=== PATIENT | female | born 1955 | race Caucasian/White ===

== ENCOUNTER 2018-01-17 18:25 | Observation (INO) ==
[2018-01-17] MEDS ORDERED: Aspirin 81 MG TAB.CHEW PO ONE (18:42)
[2018-01-17] MEDS: Nitroglycerin 0.4 MG TAB.SUBL SL ONE ×2 (18:57→19:02)
--- NOTE | 2018-01-17 19:03 | Emergency Department Note ---
Disposition Clinical Impression: Chest pain Qualifiers: Chest pain type: unspecified Qualified Code(s): R07.9 - Chest pain, unspecified Disposition: Admitted As Inpatient Condition: Good Forms: ED Satisfaction Letter Chest Pain HPI - General Chief Complaint: ED Chest Pain Stated Complaint: CP Time Seen by Provider: 01/17/18 18:42 Source: patient Limitations: no limitations Vital Signs Reviewed: Yes Nursing Notes Reviewed: Yes - History of Present Illness HPI Narrative: Patient presents to the emergency department for evaluation of chest pain. Previous chest pain similar to prior MRIs that have required 6 stents in the past. Chest pain is in the center of her chest related as pressure with radiation to left arm and associated neck pain. Better with at home nitroglycerin but not completely relieved. Patient complaining of chest pain 6 out of 10 upon arrival. She did take aspirin and extra dose of Plavix prior to arrival. Her initial EKG does not show any significant ST elevations or depressions. She has previous EKG from 05/22 as well as 12/19. Patient will undergo further evaluation for possible cardiac etiology of chest pain Past medical history of coronary artery disease with 6 stents placed, hyperlipidemia, significant smoking history, COPD Severity scale (1-10): 5 - Related Data Home Medications Medication Instructions Recorded Confirmed ALPRAZolam [Xanax 0.5 MG Tablet] 0.5 mg PO BID PRN 05/25/15 05/25/15 Aspirin [Adult Low Dose Aspirin EC] 81 mg PO DAILY 05/25/15 05/25/15 Atorvastatin Calcium [Lipitor] 80 mg PO DAILY 05/25/15 05/25/15 Clopidogrel [Plavix] 75 mg PO DAILY 05/25/15 05/25/15 Lansoprazole [Prevacid] 30 mg PO TID 05/25/15 05/25/15 Metoprolol XL (24 HR) Succ [Toprol 50 mg PO DAILY 05/25/15 05/25/15 Xl] Oxycodone HCl/Acetaminophen 1 tab PO Q6H PRN 05/25/15 05/25/15 [Percocet 10-325 mg Tablet] Previous Rx's Medication Instructions Recorded Lisinopril [Zestril] 20 mg PO BID 30 Days tablet 05/28/15 Lisinopril [Zestril] 20 mg PO BID 30 Days tablet 05/28/15 Allergies Allergy/AdvReac Type Severity Reaction Status Date / Time bacitracin Allergy Rash Verified 01/17/18 18:29 [From Neosporin ([id number])] Neomycin Allergy Rash Verified 01/17/18 18:29 [From Neosporin ([id number])] polymyxin B Allergy Rash Verified 01/17/18 18:29 [From Neosporin ([id number])] Review of Systems: CONSTITUTIONAL: No weight loss, fever, chills, weakness or fatigue. HEENT: Eyes: No visual changes. Ears, Nose, Throat: No hearing loss, difficulty talking or unable to swallow. SKIN: No rash or itching. CARDIOVASCULAR: Chest pain RESPIRATORY: No shortness of breath, cough or sputum. GASTROINTESTINAL: No anorexia, nausea, vomiting or diarrhea. No abdominal pain or blood. GENITOURINARY: No burning on urination or hematuria. NEUROLOGICAL: No headache, dizziness, syncope, paralysis, ataxia, numbness or tingling in the extremities. No change in bowel or bladder control. MUSCULOSKELETAL: No muscle pain, back pain, joint pain or stiffness. Chest Pain PMH - Past Medical History Medical history: Reports: coronary artery disease, hyperlipidemia, hypertension, myocardial infarction Surgical history: Reports: cholecystectomy, hysterectomy, other, LE stent (s) Psychiatric history: Reports: no psych history - Social History Smoking Status: Current every day smoker Alcohol use: Reports: none Drug use: Reports: none Physical Exam General: Well appearing, nontoxic, no acute distress Head: Normocephalic Atraumatic Eyes: PERRL, EOMI ENT: Airway patent, no stridor Neck: supple, no meningismus Chest: Lungs clear to auscultation bilateral Cardiac: Regular rate and rhythm, no murmurs, rubs or gallops Abdomen: soft, nontender, nondistended; no guarding, rebound, or tenderness to percussion Musculoskeletal: Calves symmetric, nontender, no palpable cord Skin: No rash, normal skin tone Neuro: Alert and Oriented to person, place, and time; No focal deficit - General Limitations: no limitations General appearance: alert, in no apparent distress Course - Reevaluation(s) Reevaluation #1: Patient check aspirin as well as next dose of Plavix prior to arrival. Refusing aspirin in the emergency department. Patient was given nitroglycerin with complete resolution of pain. Patient will be admitted for further management. - Consultations Consultation #1: Discussed with hospitalist. Patient accepted for admission. Vital Signs Temperature 97.6 F 01/17/18 18:28 Pulse Rate 80 01/17/18 18:28 Respiratory Rate 16 01/17/18 18:28 Blood Pressure 139/77 01/17/18 18:28 O2 Sat by Pulse Oximetry 100 01/17/18 18:28 Temperature 97.6 F 01/17/18 18:46 Pulse Rate 82 01/17/18 19:30 Respiratory Rate 16 01/17/18 19:30 Blood Pressure 108/67 01/17/18 19:30 O2 Sat by Pulse Oximetry 97 01/17/18 19:30 Oxygen Delivery Oxygen Delivery Room Air Chest Pain - Lab Data Result diagrams: 01/17/18 18:54 01/17/18 18:54 Lab Results 01/17/18 01/17/18 01/17/18 Range/Units 18:54 18:54 18:54 WBC 9.2 (4.3-11.1) K/mcL RBC 4.41 (3.82-4.97) M/mcL Hgb 11.9 (11.5-15.4) g/dL Hct 36.0 (35.3-44.9) % MCV 81.6 L (83.0-100.0) fL MCH 27.0 L (28.0-33.3) pg MCHC 33.1 (31.6-35.5) g/dL RDW 15.5 H (11.5-14.5) % Plt Count 372 (140-400) K/mcL MPV 9.7 (9.4-12.4) fL Immature Gran % 0.8 (0-4) % Seg Neutrophils % 62.0 % Lymphocytes % 28.0 % Monocytes % 7.9 % Eosinophils % 1.1 % Basophils % 0.2 % Neutrophils # 5.7 (1.6-8.9) K/mcL Lymphocytes # 2.6 (0.6-4.6) K/mcL Monocytes # 0.7 (0.0-1.3) K/mcL Eosinophils # 0.1 (0.0-0.6) K/mcL Basophils # 0.0 (0.0-0.2) K/mcL PT 10.9 (9.4-12.1) Seconds INR 1.0 APTT 32.3 (26.0-36.0) Seconds Sodium 138 (136-145) mEq/L Potassium 3.7 (3.5-5.1) mEq/L Chloride 108 H (98-107) mEq/L Carbon Dioxide 23 (23-29) mEq/L BUN 10 (8-23) mg/dL Creatinine 0.90 (0.60-1.20) mg/dL Est GFR ( Amer) > 60 (> 60) Est GFR (Non-Af Amer) > 60 (> 60) BUN/Creatinine Ratio 11 (6-26) Glucose 66 L (70-105) mg/dL Calculated Osmolality 283 (280-300) Calcium 8.9 (8.6-10.3) mg/dL Troponin I < 0.03 (< 0.04) ng/mL
[2018-01-17 19:07] LABS: Basophils % 0.2 %; Eosinophils # 0.1 K/mcL (0.0-0.6); Eosinophils % 1.1 %; Hemoglobin 11.9 g/dL (11.5-15.4); Immature Granulocytes % 0.8 % (0-4); Lymphocytes # 2.6 K/mcL (0.6-4.6); Mean Corpuscular HGB Conc 33.1 g/dL (31.6-35.5); Mean Corpuscular Volume 81.6 fL (83.0-100.0); Mean Platelet Volume 9.7 fL (9.4-12.4); Monocytes # 0.7 K/mcL (0.0-1.3); Monocytes % 7.9 %; Neutrophils # 5.7 K/mcL (1.6-8.9); Platelet Count 372 K/mcL (140-400); Red Blood Count 4.41 M/mcL (3.82-4.97); Red Cell Distribution Width 15.5 % (11.5-14.5)
[2018-01-17 19:14] LABS: Prothrombin Time 10.9 Seconds (9.4-12.1)
[2018-01-17 19:16] LABS: Activated Partial Thrombo Time 32.3 Seconds (26.0-36.0)
[2018-01-17 19:31] LABS: BUN/Creatinine Ratio 11 (6-26); Blood Urea Nitrogen 10 mg/dL (8-23); Calcium 8.9 mg/dL (8.6-10.3); Carbon Dioxide 23 mEq/L (23-29); Chloride 108 mEq/L (98-107); Glucose 66 mg/dL (70-105); Osmolality,Calculated 283 (280-300); Potassium 3.7 mEq/L (3.5-5.1); Sodium 138 mEq/L (136-145); Troponin I < 0.03 ng/mL (< 0.04); eGFR For Non-African Americans > 60 (> 60)
[2018-01-17] MEDS ORDERED: Naloxone 0.4 MG/ML INJ IVP PRN (23:00)
[2018-01-17] MEDS ORDERED: *HR* OxyCODONE/APAP 10/325 TABLET PO PRN (23:04)
[2018-01-17] MEDS ORDERED: ALPRAZolam 0.5 MG TABLET PO PRN (23:04)
[2018-01-17] MEDS ORDERED: diazePAM 5 MG TABLET PO PRN (23:04)
[2018-01-17] MEDS ORDERED: Nitroglycerin 0.4 MG TAB.SUBL SL PRN (23:04)
[2018-01-17] MEDS ORDERED: Acetaminophen 325 MG TABLET PO PRN (23:06)
[2018-01-17] MEDS: *HR* Heparin 5,000 UNIT/ML VIAL SQ SCH (23:52)
[2018-01-18 01:17] LABS: Basophils % 0.3 %; Eosinophils # 0.2 K/mcL (0.0-0.6); Eosinophils % 1.6 %; Hematocrit 33.3 % (35.3-44.9); Hemoglobin 10.9 g/dL (11.5-15.4); Immature Granulocytes % 0.5 % (0-4); Lymphocytes # 3.2 K/mcL (0.6-4.6); Mean Corpuscular HGB Conc 32.7 g/dL (31.6-35.5); Mean Corpuscular Hemoglobin 26.3 pg (28.0-33.3); Mean Corpuscular Volume 80.2 fL (83.0-100.0); Mean Platelet Volume 9.9 fL (9.4-12.4); Monocytes # 0.8 K/mcL (0.0-1.3); Neutrophils # 4.9 K/mcL (1.6-8.9); Platelet Count 350 K/mcL (140-400); Red Blood Count 4.15 M/mcL (3.82-4.97); Red Cell Distribution Width 15.5 % (11.5-14.5); Segmented Neutrophils % 53.6 %
[2018-01-18 01:36] LABS: Alanine Aminotransferase 15 Units/L (7-52); Albumin 3.7 g/dL (3.5-5.7); Albumin/Globulin Ratio 1.6 (1.1-2.2); Alkaline Phosphatase 77 Units/L (34-104); Aspartate Amino Transferase 16 Units/L (13-39); BUN/Creatinine Ratio 13 (6-26); Bilirubin,Total 0.2 mg/dL (0.3-1.0); Blood Urea Nitrogen 11 mg/dL (8-23); Calcium 8.9 mg/dL (8.6-10.3); Carbon Dioxide 24 mEq/L (23-29); Chloride 109 mEq/L (98-107); Globulin 2.3 g/dL (2.4-3.5); Glucose 110 mg/dL (70-105); Osmolality,Calculated 286 (280-300); Potassium 4.1 mEq/L (3.5-5.1); Sodium 138 mEq/L (136-145); eGFR For Non-African Americans > 60 (> 60)
[2018-01-18] MEDS ORDERED: Menthol 9.1 MG LOZENGE PO PRN (02:10)
--- NOTE | 2018-01-18 02:14 | Internal Med History&Physical ---
Date of Encounter: 01/18/18 Time of Encounter: 01:00 Internal Medicine - H&P: HPI Chief complaint: Chest pain History of present illness: Ms. Edward is a 62 year old female with a past medical history of coronary artery disease status post multiple cardiac stents, hypertension, CT 3 who presents with chest pain. Patient states that earlier today while she was driving she noted left arm numbness associated with left-sided chest pain described as sharp and radiating to her neck. Chest pain aggravated by deep inspiration and palpation to the area of the left chest wall. She became concerned because it was a similar presentation to previous cardiac events. Patient reports she had a recent upper respiratory tract infection which she is recovering from. She did take nitroglycerin at home which helped but did not completely relieve her symptoms. Additionally she took an extra dose of her Plavix prior to arrival. Initial EKG was unremarkable and did not show any ST or T-wave changes. Negative troponins. Currently chest pain-free. Past Med Surg Social Fam HX - Past Medical History Medical history: coronary artery disease, hyperlipidemia, hypertension, myocardial infarction Additional medical history: lumbar stenosis, anemia Psychiatric history: no psych history - Past Surgical History Surgical History: cholecystectomy, hysterectomy, other, LE stent (s) Additional surgical history: colonoscopy, bladder sling removed, hiatal hernia repair, stents x6 - Social History Smoking Status: Current every day smoker Smokeless Tobacco Status: No Alcohol use: none Drug use: none - Family History Father Living Status: Hx Family Cardiac Disorders: Yes Internal Medicine - H&P: Meds ALPRAZolam [Xanax 0.5 MG Tablet] 0.5 mg PO BID PRN 05/25/15 [History] Aspirin [Adult Low Dose Aspirin EC] 81 mg PO DAILY 05/25/15 [History] Atorvastatin Calcium [Lipitor] 80 mg PO DAILY 05/25/15 [History] Clopidogrel [Plavix] 75 mg PO DAILY 05/25/15 [History] Lansoprazole [Prevacid] 30 mg PO TID 05/25/15 [History] Metoprolol XL (24 HR) Succ [Toprol Xl] 50 mg PO DAILY 05/25/15 [History] Oxycodone HCl/Acetaminophen [Percocet 10-325 mg Tablet] 1 tab PO Q6H PRN 05/25/15 [History] Diazepam 5 mg PO BID PRN 01/17/18 [History] Lisinopril [Zestril] 10 mg PO BID 01/17/18 [History] Allergy/AdvReac Type Severity Reaction Status Date / Time bacitracin Allergy Rash Verified 01/17/18 18:29 [From Neosporin ([id number])] Neomycin Allergy Rash Verified 01/17/18 18:29 [From Neosporin ([id number])] polymyxin B Allergy Rash Verified 01/17/18 18:29 [From Neosporin ([id number])] All Systems PM: A 10-system review of systems was performed and is negative for pertinent findings except as documented above in the HPI. - Constitutional Constitutional: no chills, no fever(s), no night sweats - EENT Eyes: no change in vision, no discharge, no pain, no photophobia Ears: no ear discharge, no ear pain, no tinnitus Nose, mouth and throat: no dysphagia, no nasal discharge, no neck pain, no sore throat - Cardiovascular Cardiovascular ROS IM: no chest pain, no diaphoresis, no dyspnea, no lightheadedness, no palpitations, no syncope - Respiratory Respiratory: no cough, no dyspnea, no wheezing, no excessive phlegm production - Gastrointestinal Gastrointestinal: no abdominal pain, no diarrhea, no hematemesis, no hematochezia, no melena, no nausea, no vomiting - Genitourinary Genitourinary: no change in urinary stream, no dysuria, no flank pain, no hematuria - Musculoskeletal Musculoskeletal ROS IM: no numbness, no tingling - Integumentary Integumentary IM: no rash, no unusual bruising - Neurological Neurological ROS: no confusion, no convulsions, no focal weakness, no numbness, no tingling, no tremor(s) - Hematologic/Lymphatic Hematologic/Lymphatic: no easy bruising - Constitutional Vitals: Temp Pulse Resp BP Pulse Ox 98.2 F 62 15 128/82 99 01/17/18 22:07 01/17/18 22:07 01/17/18 22:07 01/17/18 22:07 01/17/18 22:07 Exam: General: Alert and oriented Skin:Normal color, no rash, no lesions. HEENT:EOM, pupils equal, round and reactive. Cardiovascular:Normal S1 & S2, tenderness to palpation over the area of the left chest wall; no rubs, murmurs or gallops. No JVD. Pulse regular. Lungs:Normal breath sounds, no wheezes or crackles. Abdomen:Soft, non-tender, no rigidity. Extremities:No deformity, no edema or tenderness, no joint swelling or clubbing. Neurological:Normal cognition and motor skills. Pulses:Carotid and radial pulses normal +2. Rest of the physical exam is non contributory Internal Med - H&P Results - Labs CBC & Chem 7: 01/18/18 00:54 01/18/18 00:54 Labs: Short CBC 01/17/18 01/18/18 Range/Units 18:54 00:54 WBC 9.2 9.1 (4.3-11.1) K/mcL Hgb 11.9 10.9 L (11.5-15.4) g/dL Hct 36.0 33.3 L (35.3-44.9) % Plt Count 372 350 (140-400) K/mcL Neutrophils # 5.7 4.9 (1.6-8.9) K/mcL BMP 01/17/18 01/18/18 18:54 00:54 Sodium 138 138 Potassium 3.7 4.1 Chloride 108 H 109 H Carbon Dioxide 23 24 BUN 10 11 Creatinine 0.90 0.85 Glucose 66 L 110 H Calcium 8.9 8.9 Cardiac Enzymes 01/17/18 01/18/18 Range/Units 18:54 00:54 Troponin I < 0.03 < 0.03 (< 0.04) ng/mL Liver Function 01/18/18 Range/Units 00:54 Total Bilirubin 0.2 L (0.3-1.0) mg/dL AST 16 (13-39) Units/L ALT 15 (7-52) Units/L Alkaline Phosphatase 77 (34-104) Units/L Albumin 3.7 (3.5-5.7) g/dL - Impressions ITS Impressions Chest X-Ray 01/17/18 18:42 IMPRESSION: Increased lung markings at the bilateral parahilar regions, may be related to mild bronchitis. D/ / Kit Broderick MD / Kit Broderick MD Interpreting Provider: Kit Broderick MD - Assessment and plan (1) Chest pain Current Visit: Yes Status: Acute Assessment and plan: Atypical chest pain described as left-sided, sharp, aggravated with deep inspiration and reproducible to palpation over the area in question. Initial EKG was unchanged from previous do not show any T-wave inversions or ST to carol nges. Initial troponins were negative. Low suspicion for ACS. Patient had a nuclear stress test in May which was negative for ischemia or infarct. Patient did receive loading dose of aspirin in the ED. Suspect possible costochondritis versus pleurisy in the setting of a recent upper respiratory tract infection. Chest x-ray also shows changes consistent with a mild bronchitis. Continue telemetry Sublingual nitroglycerin as needed Trend troponins We will recommend discharging home if troponins remain negative. Qualifiers: Chest pain type: unspecified Qualified Code(s): R07.9 - Chest pain, unspecified (2) CAD (coronary artery disease) Current Visit: No Status: Chronic Assessment and plan: Coronary artery disease status post multiple stents. Low suspicion for ACS at this time. See above. We will continue home medications for medical management of her coronary artery disease. Qualifiers: Coronary Disease-Associated Artery/Lesion type: [place] artery [place] vs. transplanted heart: [place] heart Associated angina: angina presence unspecified Qualified Code(s): I25.10 - Atherosclerotic heart disease of [place] coronary artery without angina pectoris (3) COPD suggested by initial evaluation Current Visit: No Status: Chronic Assessment and plan: Stable. No evidence of an acute exacerbation. We will monitor. (4) Hypertension Current Visit: Yes Status: Acute Assessment and plan: Blood pressure stable. Continue home antihypertensives. Monitor. Qualifiers: Hypertension type: essential hypertension Qualified Code(s): I10 - Essential (primary) hypertension (5) DVT prophylaxis Current Visit: No Status: Acute Assessment and plan: Subcutaneous heparin - Time Spent With Patient Total time spent is greater than 50% in coordination of care (as documented) at patient's floor/unit and/or counseling patient:
[2018-01-18] MEDS: *HR* Heparin 5,000 UNIT/ML VIAL SQ SCH (06:33)
[2018-01-18 07:00] VITALS: BP 143/80
[2018-01-18] MEDS ORDERED: Metoprolol XL (24 HR) Succ 50 MG TAB.ER.24H PO SCH (09:00)
[2018-01-18] MEDS ORDERED: Lisinopril 20 MG TABLET PO SCH (09:00)
[2018-01-18] MEDS ORDERED: Aspirin Enteric Coated 81 MG Tablet PO SCH (09:00)
[2018-01-18] MEDS ORDERED: Levofloxacin 750 MG/150 ML 750 MG/150 ML BAG IVPB SCH (09:15)
[2018-01-18] MEDS ORDERED: Nicotine 14 MG PATCH.TD24 TD SCH (09:15)
--- NOTE | 2018-01-18 09:19 | Discharge Summary ---
- NOTES TO OUTPATIENT PROVIDER Notes to Outpatient Provider: Follow up with PCP in one week. please quit smoking Orders not resulted at time of discharge: Pending orders 01/17/18 18:42 ECG 12 lead ECG [ECG] Stat Date of Encounter: 01/18/18 Time of Encounter: 09:14 - Discharge Diagnosis (1) Acute bronchitis Priority: Primary Status: Acute Qualifiers: Bronchitis organism: unspecified organism Qualified Code(s): J20.9 - Acute bronchitis, unspecified (2) Chest pain Priority: Primary Status: Acute Qualifiers: Chest pain type: unspecified Qualified Code(s): R07.9 - Chest pain, unspecified (3) CAD (coronary artery disease) Priority: Secondary Status: Chronic Qualifiers: Coronary Disease-Associated Artery/Lesion type: [place] artery [place] vs. transplanted heart: [place] heart Associated angina: angina presence unspecified Qualified Code(s): I25.10 - Atherosclerotic heart disease of [place] coronary artery without angina pectoris (4) COPD suggested by initial evaluation Priority: Secondary Status: Chronic (5) DVT prophylaxis Priority: Secondary Status: Acute (6) Hypertension Priority: Secondary Status: Acute Qualifiers: Hypertension type: essential hypertension Qualified Code(s): I10 - Essential (primary) hypertension Hospital course: Ms. Edward is a 62 year old female with a past medical history of coronary artery disease status post multiple cardiac stents, hypertension, [place] 3 who had a normal nuclear stress test on , chronic tobacco dependence patient who presented to ER with cough with expectoration and chest pain. Chest pain aggravated by deep inspiration and palpation to the area of the left chest wall. She did take nitroglycerin at home which helped but did not completely relieve her symptoms. Additionally she took an extra dose of her Plavix prior to arrival. Initial EKG was unremarkable and did not show any ST or T-wave changes. She was admitted in the hospital and placed on panel monitor. Checked her serial troponin x 3, were negative. Her chest x-ray showed mild bronchitis. At this point I placed her on empirical antibiotic levofloxacin due to her purulent bronchitis suspicious for bacterial infection. Patient is still smoking half a pack a day, Counseled to quit smoking and also gave her prescription for nicotine patches. Since she had a normal stress test in May 2017, now with negative troponin times 3 and atypical presentation for chest pain [place] patient does not need any further cardiac workup at this point. So will discharge her home in a stable condition today - Time Spent with Patient Total time spent providing and/or coordinating discharge services: - Discharge Medications Prescriptions: Albuterol Sulfate [Albuterol Inhaler] 2 puff IH Q6HR PRN #1 hfa.[email or web address] PRN Reason: Shortness Of Breath Levofloxacin [Levaquin] 500 mg PO DAILY #4 tablet Nicotine Patch [Nicoderm] 14 mg TD DAILY #20 patch.td24 Home Medications: ALPRAZolam [Xanax 0.5 MG Tablet] 0.5 mg PO BID PRN 05/25/15 [History] Aspirin [Adult Low Dose Aspirin EC] 81 mg PO DAILY 05/25/15 [History] Atorvastatin Calcium [Lipitor] 80 mg PO DAILY 05/25/15 [History] Clopidogrel [Plavix] 75 mg PO DAILY 05/25/15 [History] Lansoprazole [Prevacid] 30 mg PO TID 05/25/15 [History] Metoprolol XL (24 HR) Succ [Toprol Xl] 50 mg PO DAILY 05/25/15 [History] Oxycodone HCl/Acetaminophen [Percocet 10-325 mg Tablet] 1 tab PO Q6H PRN 05/25/15 [History] Diazepam 5 mg PO BID PRN 01/17/18 [History] Lisinopril [Zestril] 10 mg PO BID 01/17/18 [History] Albuterol Sulfate [Albuterol Inhaler] 2 puff IH Q6HR PRN #1 hfa.aer.ad 01/18/18 [Rx] Levofloxacin [Levaquin] 500 mg PO DAILY #4 tablet 01/18/18 [Rx] Nicotine Patch [Nicoderm] 14 mg TD DAILY #20 patch.td24 01/18/18 [Rx] Allergies/Adverse Reactions: Allergy/AdvReac Type Severity Reaction Status Date / Time bacitracin Allergy Rash Verified 01/17/18 18:29 [From Neosporin ([id number])] Neomycin Allergy Rash Verified 01/17/18 18:29 [From Neosporin ([id number])] polymyxin B Allergy Rash Verified 01/17/18 18:29 [From Neosporin ([id number])] Date of admission: 01/17/18 20:56 Primary care physician: Delicia Baca CNP - Constitutional Vitals: Temp Pulse Resp BP Pulse Ox 97.8 F 62 16 143/80 97 01/18/18 07:00 01/18/18 07:00 01/18/18 07:00 01/18/18 07:00 01/18/18 07:00 General appearance: Present: A&O X 3 Exam: Gen: Alert, awake, Oriented to time,place and person Chest: Diminished breath sounds B/L, No wheezing, No crackles, No rales, reproducible chest wall tenderness Heart: S1S2+ RRR No murmurs Abd: Soft, NT, BS +, No organomegaly Ext: No edema, pulses are palpable, No calf tenderness Neuro : Benign findings Skin: No rash. - Patient Status Disposition: Home, Self-Care Condition: Good Overall status at discharge: patient is back to baseline - Discharge Instructions Follow Up With: Delicia Baca CNP [Primary Care Provider] - - Diet and Activity Activity: increase activity as tolerated Diet: low salt diet
[2018-01-18] MEDS ORDERED: levoFLOXacin 500 MG TABLET PO ONE (09:55)
--- NOTE | 2018-01-19 20:01 | Electrocardiograph Report ---
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
== END 2018-01-18 11:09 | disposition home or self-care (01) ==
LOC: 3BNU 18:25 → EMEROOARM 18:25 → 3BNU 21:43
PROVIDERS: ADMIT Internal Medicine; ATTEND Internal Medicine

== ENCOUNTER 2020-07-29 18:43 | Inpatient (IN) ==
[~2020-07-29 18:43] MED LIST: *HR* Atropine Sulfate 1 MG/10 ML SYRINGE IV ONE; *HR* Dextrose 50 % in Water (Syg) 50 ML SYRINGE IVP ONE; *HR* EPINEPHrine 1 MG/10 ML SYRINGE IVP ONE; EPINEPHrine 1 MG/ML VIAL IV ONE; Norepinephrine 4 MG/254 ML 0.9% NaCL IVC ONE
[2020-07-29] MEDS ORDERED: Insulin Regular, Human 100 UNIT/ML ONE ×2 (18:57→19:28)
[2020-07-29 19:11] LABS: ABG Base Excess -17 mEq/L (-2 to 3); ABG HCO3 16 mEq/L (21-27); ABG Oxygen Saturation 99 % (95-98); ABG PCO2 91 mmHg (35-45); ABG PH 6.86 pH Units (7.32-7.45); ABG PO2 253 mmHg (85-104); ABG TCO2 19 mEq/L (20-26); Blood Gas VT 400 cc
[2020-07-29] MEDS ORDERED: 0.9 % Sodium Chloride 250 ML ONE (19:21)
[2020-07-29] MEDS: Norepinephrine 4 MG/254 ML IV.SOLN IVC SCH (19:27)
[2020-07-29] MEDS ORDERED: Isovue-370 500 ML BOTTLE IVP ONE (19:29)
[2020-07-29] MEDS ORDERED: 0.9 % Sodium Chloride 1,000 ML IVC ONE (19:30)
[2020-07-29] MEDS ORDERED: Piperacillin/Tazobactam 3.375 GM in Water for inj. (sterile) 20 ML IVP ONE (19:30)
[2020-07-29] MEDS ORDERED: Insulin Regular, Human 100 UNIT/ML IV ONE (19:30)
[2020-07-29] MEDS ORDERED: *HR* Midazolam HCl 50 MG/10 ML VIAL IVC ONE (19:43)
[2020-07-29] MEDS ORDERED: *HR* FentaNYL (PF) 1,000 MCG/20 ML VIAL ONE (19:44)
[2020-07-29] MEDS ORDERED: EPINEPHrine 1 MG in D5% in Water 250 ML IVC SCH (19:45)
[2020-07-29 19:46] LABS: INR 1.1; Prothrombin Time 13.1 Seconds (9.4-12.1)
[2020-07-29 19:48] LABS: Activated Partial Thrombo Time 28.9 Seconds (26.0-36.0)
[2020-07-29] MEDS: Midazolam HCl 50 MG/100 ML IV.SOLN IVC SCH (19:52)
[2020-07-29] MEDS: FentaNYL (PF) 1,000 MCG/100 ML IV.SOLN IVC SCH (19:54)
[2020-07-29 20:19] LABS: Hematocrit 31.7 % (35.3-44.9); Hemoglobin 10.7 g/dL (11.5-15.4); Mean Corpuscular HGB Conc 33.8 g/dL (31.6-35.5); Mean Corpuscular Hemoglobin 27.2 pg (28.0-33.3); Mean Corpuscular Volume 80.7 fL (83.0-100.0); Mean Platelet Volume 9.8 fL (9.4-12.4); Monocytes # 0.3 K/mcL (0.0-1.3); Nucleated Red Blood Cells 0.2 /100 WBC (0); Platelet Count 291 K/mcL (140-400); Red Blood Count 3.93 M/mcL (3.82-4.97); Red Cell Distribution Width 14.9 % (11.5-14.5); White Blood Count 16.6 K/mcL (4.3-11.1)
[2020-07-29] MEDS ORDERED: levETIRAcetam 1,000 MG in 0.9 % Sodium Chloride 100 ML IVPB ONE (20:25)
[2020-07-29 20:26] LABS: Amphetamine Screen,Urine Negative ng/mL (Cutoff=1000); Barbiturate Screen,Urine Negative ng/mL (Cutoff=200); Benzodiazepines Screen,Urine Negative ng/mL (Cutoff=200); Cannabinoid Screen,Urine Negative ng/mL (Cutoff = 50); Cocaine Screen,Urine Negative ng/mL (Cutoff= 300); Opiate Screen,Urine Positive ng/mL (Cutoff=300); Phencyclidine Screen,Urine Negative ng/mL (Cutoff=25)
[2020-07-29 20:35] LABS: Acetaminophen < 10 mcg/mL (10-20); BUN/Creatinine Ratio 13 (6-26); Blood Urea Nitrogen 16 mg/dL (8-23); Calcium 9.6 mg/dL (8.6-10.3); Carbon Dioxide 17 mEq/L (23-29); Chloride 99 mEq/L (98-107); Glucose 234 mg/dL (70-105); Osmolality,Calculated 291 (280-300); Potassium 4.4 mEq/L (3.5-5.1); Salicylate < 2.5 mg/dL (15.0-30.0); Sodium 136 mEq/L (136-145); eGFR For African Americans 51 (> 60); eGFR For Non-African Americans 42 (> 60)
[2020-07-29 20:39] LABS: Troponin I 0.04 ng/mL (< 0.04)
[2020-07-29 20:48] LABS: Eosinophils # 0.3 K/mcL (0.0-0.6); Large Platelets Present (Not Present); Lymphocytes # 2.3 K/mcL (0.6-4.6); Neutrophils # 13.3 K/mcL (1.6-8.9); Platelet Estimate Normal (Normal); Reactive Lymphocytes Present (Not Present)
[2020-07-29 20:58] LABS: ABG Base Excess -3 mEq/L (-2 to 3); ABG HCO3 23 mEq/L (21-27); ABG Oxygen Saturation 97 % (95-98); ABG PCO2 48 mmHg (35-45); ABG PO2 99 mmHg (85-104); ABG TCO2 25 mEq/L (20-26); Blood Gas Modality ASSIST CONTROL; Blood Gas VT 400 cc
[2020-07-29] MEDS ORDERED: Naloxone 0.4 MG/ML INJ IVP PRN (22:48)
[2020-07-30] MEDS ORDERED: 0.9 % Sodium Chloride 1,000 ML IVC SCH (00:15)
[2020-07-30] MEDS: Piperacillin/Tazobactam 3.375 GM in 0.9 % Sodium Chloride Mini Bag 100 ML IVPB SCH ×4 (00:19→23:06)
[2020-07-30] MEDS: *HR* Heparin 5,000 UNIT/ML VIAL SQ SCH ×4 (00:19→23:06)
[2020-07-30 00:46] LABS: Basophils # 0.1 K/mcL (0.0-0.2); Basophils % 0.5 %; Eosinophils % 0.1 %; Hematocrit 36.6 % (35.3-44.9); Hemoglobin 12.2 g/dL (11.5-15.4); Immature Granulocytes % 3.9 % (0-4); Lymphocytes # 1.2 K/mcL (0.6-4.6); Lymphocytes % 5.7 %; Mean Corpuscular HGB Conc 33.3 g/dL (31.6-35.5); Mean Corpuscular Hemoglobin 26.3 pg (28.0-33.3); Mean Platelet Volume 9.8 fL (9.4-12.4); Monocytes # 1.1 K/mcL (0.0-1.3); Monocytes % 5.3 %; Nucleated Red Blood Cells 0.1 /100 WBC (0); Platelet Count 352 K/mcL (140-400); Red Blood Count 4.63 M/mcL (3.82-4.97); Red Cell Distribution Width 14.9 % (11.5-14.5); Segmented Neutrophils % 84.5 %
[2020-07-30 00:47] LABS: Neutrophils # 17.8 K/mcL (1.6-8.9); White Blood Count 21.1 K/mcL (4.3-11.1)
[2020-07-30 00:50] LABS: BUN/Creatinine Ratio 19 (6-26); Blood Urea Nitrogen 18 mg/dL (8-23); Calcium 9.8 mg/dL (8.6-10.3); Carbon Dioxide 24 mEq/L (23-29); Chloride 101 mEq/L (98-107); Glucose 180 mg/dL (70-105); Osmolality,Calculated 290 (280-300); Potassium 3.7 mEq/L (3.5-5.1); Sodium 137 mEq/L (136-145); eGFR For African Americans > 60 (> 60); eGFR For Non-African Americans 58 (> 60)
[2020-07-30] MEDS ORDERED: hydrALAZINE 10 MG TABLET PO PRN (01:03)
[2020-07-30] MEDS: *HR* Meperidine 25 MG/ML SYRINGE IVP PRN ×2 (01:35→09:13)
[2020-07-30 01:37] LABS: Magnesium 1.7 mg/dL (1.6-2.6)
[2020-07-30 04:40] LABS: ABG Base Excess -1 mEq/L (-2 to 3); ABG HCO3 23 mEq/L (21-27); ABG Oxygen Saturation 98 % (95-98); ABG PCO2 36 mmHg (35-45); ABG PH 7.41 pH Units (7.32-7.45); ABG PO2 96 mmHg (85-104); ABG TCO2 24 mEq/L (20-26); Blood Gas VT 480 cc
[2020-07-30] MEDS: MethylPREDNISolone 40 MG/ML VIAL IVP SCH ×2 (07:51→17:27)
[2020-07-30 08:42] LABS: Adenovirus Not Detected (Not Detect); Coronavirus 229E Not Detected (Not Detect); Coronavirus HKU1 Not Detected (Not Detect); Coronavirus NL63 Not Detected (Not Detect); Coronavirus OC43 Not Detected (Not Detect)
[2020-07-30 08:43] LABS: Bordetella Pertussis Not Detected (Not Detect); Chlamydophila pneumoniae Not Detected (Not Detect); Human Metapneumovirus Not Detected (Not Detect); Human Rhinovirus/Enterovirus Not Detected (Not Detect); Influenza A Subtype 2009 H1 Not Detected (Not Detect); Influenza B Not Detected (Not Detect); Mycoplasma pneumoniae Not Detected (Not Detect); Parainfluenza Virus 1 Not Detected (Not Detect); Parainfluenza Virus 2 Not Detected (Not Detect); Parainfluenza Virus 3 Not Detected (Not Detect); Parainfluenza Virus 4 Not Detected (Not Detect); Respiratory Syncytial Virus Not Detected (Not Detect); SARS-CoV-2 Not Detected (Not Detect)
[2020-07-30] MEDS ORDERED: Perflutren Lipid Microsphere 1.3 ML in 0.9 % Sodium Chloride 8.7 ML IVP PRN (09:48)
[2020-07-30] MEDS ORDERED: Artificial Tears SOLN 15 ML BOTTLE BOTH EYES PRN (10:02)
[2020-07-30] MEDS: FentaNYL (PF) 1,000 MCG/100 ML IV.SOLN IVC SCH ×3 (10:43→23:27)
[2020-07-30] MEDS: Chlorhexidine Rinse 15 ML MOUTHWASH MM SCH ×2 (10:50→19:57)
[2020-07-30] MEDS: Dexmedetomidine HCl 400 MCG/100 ML MLS IVC SCH (11:00)
[2020-07-30] MEDS: Artificial Tears SOLN 15 ML BOTTLE BOTH EYES SCH ×4 (11:42→23:07)
[2020-07-30] MEDS ORDERED: Vancomycin 1,250 MG/262.5 ML IV.SOLN IVPB SCH (12:00)
[2020-07-30] MEDS ORDERED: Ipratropium/Albuterol Neb 3 ML IH PRN (13:43)
[2020-07-30] MEDS: Doxycycline 100 MG in 0.9 % Sodium Chloride Mini Bag 100 ML IVPB SCH (17:27)
[2020-07-30] MEDS: Norepinephrine 4 MG/254 ML IV.SOLN IVC SCH (19:44)
[2020-07-30] MEDS: Midazolam HCl 50 MG/100 ML IV.SOLN IVC SCH (19:56)
[2020-07-31] MEDS: Dexmedetomidine HCl 400 MCG/100 ML MLS IVC SCH ×3 (01:49→20:45)
[2020-07-31] MEDS: Artificial Tears SOLN 15 ML BOTTLE BOTH EYES SCH ×5 (04:10→20:01)
[2020-07-31 04:22] LABS: ABG Base Excess 0 mEq/L (-2 to 3); ABG HCO3 25 mEq/L (21-27); ABG Oxygen Saturation 96 % (95-98); ABG PCO2 39 mmHg (35-45); ABG PH 7.41 pH Units (7.32-7.45); ABG PO2 79 mmHg (85-104); ABG TCO2 26 mEq/L (20-26); Blood Gas VT 400 cc
[2020-07-31 04:23] LABS: Basophils % 0.1 %; Hematocrit 28.1 % (35.3-44.9); Hemoglobin 9.5 g/dL (11.5-15.4); Immature Granulocytes % 3.7 % (0-4); Lymphocytes # 1.2 K/mcL (0.6-4.6); Lymphocytes % 5.6 %; Mean Corpuscular HGB Conc 33.8 g/dL (31.6-35.5); Mean Corpuscular Hemoglobin 26.3 pg (28.0-33.3); Mean Corpuscular Volume 77.8 fL (83.0-100.0); Mean Platelet Volume 10.2 fL (9.4-12.4); Monocytes # 0.7 K/mcL (0.0-1.3); Monocytes % 3.4 %; Neutrophils # 18.7 K/mcL (1.6-8.9); Nucleated Red Blood Cells 0.1 /100 WBC (0); Platelet Count 288 K/mcL (140-400); Red Blood Count 3.61 M/mcL (3.82-4.97); Red Cell Distribution Width 15.1 % (11.5-14.5); Segmented Neutrophils % 87.2 %; White Blood Count 21.5 K/mcL (4.3-11.1)
[2020-07-31 04:41] LABS: Magnesium 1.4 mg/dL (1.6-2.6); Phosphorous 3.1 mg/dL (2.7-4.5)
[2020-07-31] MEDS: Doxycycline 100 MG in 0.9 % Sodium Chloride Mini Bag 100 ML IVPB SCH ×2 (06:12→17:37)
[2020-07-31] MEDS: MethylPREDNISolone 40 MG/ML VIAL IVP SCH ×2 (06:12→17:35)
[2020-07-31] MEDS: FentaNYL (PF) 1,000 MCG/100 ML IV.SOLN IVC SCH ×3 (06:17→19:52)
[2020-07-31 06:55] LABS: BUN/Creatinine Ratio 25 (6-26); Blood Urea Nitrogen 15 mg/dL (8-23); Calcium 8.6 mg/dL (8.6-10.3); Carbon Dioxide 24 mEq/L (23-29); Chloride 108 mEq/L (98-107); Glucose 131 mg/dL (70-105); Osmolality,Calculated 295 (280-300); Potassium 3.1 mEq/L (3.5-5.1); Sodium 141 mEq/L (136-145); eGFR For African Americans > 60 (> 60); eGFR For Non-African Americans > 60 (> 60)
[2020-07-31] MEDS: Midazolam HCl 50 MG/100 ML IV.SOLN IVC SCH ×2 (08:43→21:54)
[2020-07-31] MEDS: Chlorhexidine Rinse 15 ML MOUTHWASH MM SCH ×2 (08:54→20:08)
[2020-07-31] MEDS: Piperacillin/Tazobactam 3.375 GM in 0.9 % Sodium Chloride Mini Bag 100 ML IVPB SCH ×2 (08:54→16:56)
[2020-07-31] MEDS: Pantoprazole 40 MG VIAL IVP SCH (08:54)
[2020-07-31] MEDS: *HR* Heparin 5,000 UNIT/ML VIAL SQ SCH ×2 (08:54→16:59)
[2020-07-31] MEDS ORDERED: Potassium Chloride Elixir 20 MEQ/15 ML UDC GTUBE ONE (16:19)
[2020-07-31 17:45] LABS: Basophils % 0.1 %; Hematocrit 27.7 % (35.3-44.9); Hemoglobin 9.4 g/dL (11.5-15.4); Immature Granulocytes % 2.9 % (0-4); Lymphocytes # 1.3 K/mcL (0.6-4.6); Lymphocytes % 5.4 %; Mean Corpuscular HGB Conc 33.9 g/dL (31.6-35.5); Mean Corpuscular Hemoglobin 26.5 pg (28.0-33.3); Mean Platelet Volume 10.6 fL (9.4-12.4); Monocytes # 1.1 K/mcL (0.0-1.3); Monocytes % 4.8 %; Neutrophils # 20.4 K/mcL (1.6-8.9); Nucleated Red Blood Cells 0.2 /100 WBC (0); Platelet Count 326 K/mcL (140-400); Red Blood Count 3.55 M/mcL (3.82-4.97); Red Cell Distribution Width 15.3 % (11.5-14.5); Segmented Neutrophils % 86.8 %; White Blood Count 23.6 K/mcL (4.3-11.1)
[2020-07-31] MEDS: Norepinephrine 4 MG/254 ML IV.SOLN IVC SCH (19:27)
[2020-07-31] MEDS: Ranolazine 500 MG TAB.ER.12H PO SCH (20:05)
[2020-08-01] MEDS: Piperacillin/Tazobactam 3.375 GM in 0.9 % Sodium Chloride Mini Bag 100 ML IVPB SCH ×2 (00:09→08:45)
[2020-08-01] MEDS: *HR* Heparin 5,000 UNIT/ML VIAL SQ SCH ×2 (00:11→08:45)
[2020-08-01] MEDS: Artificial Tears SOLN 15 ML BOTTLE BOTH EYES SCH ×4 (00:12→11:27)
[2020-08-01] MEDS: FentaNYL (PF) 1,000 MCG/100 ML IV.SOLN IVC SCH ×3 (02:26→23:07)
[2020-08-01 04:27] LABS: ABG Base Excess 1 mEq/L (-2 to 3); ABG HCO3 24 mEq/L (21-27); ABG Oxygen Saturation 98 % (95-98); ABG PCO2 34 mmHg (35-45); ABG PH 7.46 pH Units (7.32-7.45); ABG PO2 99 mmHg (85-104); ABG TCO2 25 mEq/L (20-26); Blood Gas Modality ASSIST CONTROL; Blood Gas VT 400 cc
[2020-08-01 04:54] LABS: Basophils % 0.1 %; Hematocrit 26.3 % (35.3-44.9); Hemoglobin 8.9 g/dL (11.5-15.4); Immature Granulocytes % 3.1 % (0-4); Lymphocytes # 1.1 K/mcL (0.6-4.6); Lymphocytes % 5.3 %; Mean Corpuscular HGB Conc 33.8 g/dL (31.6-35.5); Mean Corpuscular Hemoglobin 26.9 pg (28.0-33.3); Mean Corpuscular Volume 79.5 fL (83.0-100.0); Mean Platelet Volume 10.8 fL (9.4-12.4); Monocytes % 5.2 %; Neutrophils # 17.3 K/mcL (1.6-8.9); Nucleated Red Blood Cells 0.1 /100 WBC (0); Platelet Count 302 K/mcL (140-400); Red Blood Count 3.31 M/mcL (3.82-4.97); Red Cell Distribution Width 15.9 % (11.5-14.5); Segmented Neutrophils % 86.3 %; White Blood Count 20.1 K/mcL (4.3-11.1)
[2020-08-01 04:55] LABS: VBG Ionized Calcium 1.22 mmol/L (1.15-1.35)
[2020-08-01 05:15] LABS: BUN/Creatinine Ratio 27 (6-26); Blood Urea Nitrogen 21 mg/dL (8-23); Calcium 8.5 mg/dL (8.6-10.3); Carbon Dioxide 25 mEq/L (23-29); Chloride 111 mEq/L (98-107); Glucose 146 mg/dL (70-105); Magnesium 1.9 mg/dL (1.6-2.6); Osmolality,Calculated 298 (280-300); Phosphorous 2.8 mg/dL (2.7-4.5); Potassium 4.5 mEq/L (3.5-5.1); Sodium 141 mEq/L (136-145); eGFR For African Americans > 60 (> 60); eGFR For Non-African Americans > 60 (> 60)
[2020-08-01] MEDS: Doxycycline 100 MG in 0.9 % Sodium Chloride Mini Bag 100 ML IVPB SCH (06:01)
[2020-08-01] MEDS: MethylPREDNISolone 40 MG/ML VIAL IVP SCH (06:01)
[2020-08-01] MEDS: Dexmedetomidine HCl 400 MCG/100 ML MLS IVC SCH (07:45)
[2020-08-01] MEDS: Pantoprazole 40 MG VIAL IVP SCH (08:45)
[2020-08-01] MEDS: Chlorhexidine Rinse 15 ML MOUTHWASH MM SCH (08:45)
[2020-08-01] MEDS: Ranolazine 500 MG TAB.ER.12H PO SCH (10:58)
[2020-08-01] MEDS ORDERED: Atropine 1% Opth Drops 100 DROP/5 ML BOTTLE SL PRN (14:43)
[2020-08-01] MEDS ORDERED: *HR* FentaNYL (PF) 100 MCG/2 ML VIAL IVP PRN (14:43)
[2020-08-01] MEDS ORDERED: Haloperidol Lactate 5 MG/ML VIAL IVP PRN (14:44)
[2020-08-01] MEDS ORDERED: Acetaminophen 650 MG RECTAL SUPP RC PRN (14:44)
[2020-08-01] MEDS: *HR* LORazepam 2 MG/ML VIAL IVP PRN ×3 (18:16→23:15)
[2020-08-01] MEDS ORDERED: Docusate Oral Soln 100 MG/10 ML UDC GTUBE SCH (21:00)
[2020-08-02] MEDS: *HR* LORazepam 2 MG/ML VIAL IVP PRN ×5 (03:07→18:26)
[2020-08-02] MEDS ORDERED: MethylPREDNISolone 40 MG/ML VIAL IVP SCH (09:00)
[2020-08-02] MEDS ORDERED: *HR* FentaNYL (PF) 100 MCG/2 ML VIAL IVP PRN (09:48)
[2020-08-02] MEDS ORDERED: Scopolamine Patch 1.5 MG PATCH.TD72 TD SCH (10:15)
[2020-08-02] MEDS: FentaNYL (PF) 1,000 MCG/100 ML IV.SOLN IVC SCH ×2 (12:26→21:18)
[2020-08-02] MEDS ORDERED: Atropine 1% Opth Drops 100 DROP/5 ML BOTTLE SL PRN (13:52)
[2020-08-02] MEDS ORDERED: Haloperidol Lactate 5 MG/ML VIAL IVP PRN (13:52)
[2020-08-02] MEDS ORDERED: Acetaminophen 650 MG RECTAL SUPP RC PRN (13:52)
[2020-08-02] MEDS ORDERED: Scopolamine Patch 1.5 MG PATCH.TD72 TD ONE (13:59)
[2020-08-02] MEDS: *HR* LORazepam Oral Conc 2 MG/ML SL SCH ×3 (16:22→21:34)
[2020-08-02 19:06] VITALS: BP 148/95
[2020-08-02] MEDS: *HR* FentaNYL (PF) 100 MCG/2 ML VIAL IVP PRN ×2 (20:10→23:38)
[2020-08-03] MEDS: *HR* LORazepam Oral Conc 2 MG/ML SL SCH ×4 (02:14→14:05)
[2020-08-03] MEDS: FentaNYL (PF) 1,000 MCG/100 ML IV.SOLN IVC SCH ×2 (05:13→14:30)
[2020-08-03] MEDS: *HR* FentaNYL (PF) 100 MCG/2 ML VIAL IVP PRN (05:20)
[2020-08-03] MEDS ORDERED: *HR* HYDROmorphone (PF) 1 MG/ML SYRINGE IVP PRN (10:51)
[2020-08-03] MEDS ORDERED: Scopolamine Patch 1.5 MG PATCH.TD72 TD SCH (12:00)
[2020-08-03] MEDS ORDERED: Glycopyrrolate 0.2 MG/ML VIAL IVP ONE (13:19)
[2020-08-03] MEDS: *HR* HYDROmorphone (PF) 1 MG/ML SYRINGE IVP PRN ×2 (13:51→16:36)
[2020-08-03] MEDS: *HR* LORazepam 2 MG/ML VIAL IVP PRN (13:51)
[2020-08-03] MEDS ORDERED: *HR* LORazepam 2 MG/ML VIAL IVP SCH (18:00)
== END 2020-08-03 17:45 | disposition expired | DRG 871 ==
LOC: EMEROOARM 18:43 → ICNU 22:21 → 2ANU 08-02 13:28
PROVIDERS: ADMIT Internal Medicine; ATTEND Internal Medicine